=== PATIENT | male | born 1955 | race Caucasian/White ===

== ENCOUNTER 2020-08-22 14:02 | Emergency (ER) | payer OTHER ==
[2020-08-22] MEDS: Sodium Chloride 0.9% 10 ML Syringe FLUSH PRN ×2 (14:24→17:34)
--- NOTE | 2020-08-22 14:47 | EDM.PDOC ---
ED HPI GENERAL MEDICAL PROBLEM - General Chief Complaint: Neuro Symptoms/Deficits Stated Complaint: RT SIDE NUMBNESS IN ARM AND LEG Time Seen by Provider: 08/22/20 14:36 - History of Present Illness INITIAL COMMENTS - FREE TEXT/NARRATIVE: 64-year-old male presents the emergency room with transient intermittent right- sided numbness. Patient states he has had several episodes over the last couple weeks where he developed this brief episode of numbness that would last several minutes this initially started in his right leg, then developed into the right leg and arm and he thinks at times may be the right side of his face. These episodes never lasted more than a couple of minutes and they did get better he did have one episode where he had to really think about where he was putting his foot. He denies a foot drop or significant weakness he just had to really think about what he was doing with his leg. Patient does not have a history of prior TIAs or stroke. Patient is not aware of any recent head injury. He is treated for hypertension usually uses lisinopril 20 mg daily. He does not have a regular physician as his regular doctor did retire. - Related Data Allergies Allergy/AdvReac Type Severity Reaction Status Date / Time No Known Allergies Allergy Verified 08/22/20 14:21 Home Meds: Home Meds Aspirin [Aspirin EC] 81 mg PO DAILY 08/22/20 [History] lisinopriL [Lisinopril] 20 mg PO DAILY 08/22/20 [History] lisinopriL [Lisinopril] 20 mg PO DAILY #30 tablet 08/22/20 [Rx] Social & Family History - Tobacco Use Tobacco Use Status *Q: Never Tobacco User - Caffeine Use Caffeine Use: Reports: Soda - Recreational Drug Use Recreational Drug Use: No ED ROS GENERAL - Review of Systems Review Of Systems: See Below Constitutional: Reports: No Symptoms HEENT: Reports: No Symptoms Respiratory: Reports: No Symptoms Cardiovascular: Reports: No Symptoms GI/Abdominal: Reports: No Symptoms : Reports: No Symptoms Musculoskeletal: Reports: No Symptoms Skin: Reports: No Symptoms Neurological: Reports: Other (See HPI) Psychiatric: Reports: No Symptoms Hematologic/Lymphatic: Reports: No Symptoms ED EXAM, GENERAL - Physical Exam Exam: See Below Exam Limited By: No Limitations General Appearance: Alert, No Apparent Distress Eye Exam: Bilateral Eye: EOMI, Normal Inspection, PERRL Ears: Normal External Exam, Normal Canal, Hearing Grossly Normal, Normal TMs Nose: Normal Inspection, Normal Mucosa, No Blood Throat/Mouth: Normal Inspection, Normal Lips, Normal Teeth, Normal Gums, Normal Oropharynx, Normal Voice, No Airway Compromise Head: Atraumatic, Normocephalic Neck: Normal Inspection, Supple, Non-Tender, Full Range of Motion. No: Lymphadenopathy (L), Lymphadenopathy (R) Respiratory/Chest: No Respiratory Distress, Lungs Clear, Normal Breath Sounds Cardiovascular: Normal Peripheral Pulses, Regular Rate, Rhythm, No Edema GI/Abdominal: Normal Bowel Sounds, Soft, Non-Tender Back Exam: Normal Inspection. No: CVA Tenderness (L), CVA Tenderness (R) Extremities: Normal Inspection, No Pedal Edema Neurological: Other (Cranial nerves II through XII grossly intact all muscle groups the upper and lower extremities are equal and appropriate bilaterally deep tendon reflexes at the brachial radialis and patella tendon is equal and appropriate. Cerebellar testing appears to be normal) Course - Vital Signs Last Recorded V/S: Last Vital Signs Temp 36.2 C 08/22/20 14:18 Pulse 108 H 08/22/20 14:18 Resp 10 L 08/22/20 14:18 BP 178/106 H 08/22/20 14:18 Pulse Ox 98 08/22/20 14:18 - Orders/Labs/Meds Orders: Active Orders 24 hr Category Date Time Status EKG 12 Lead [EKG Documentation Completion] [RC] STAT Care 08/22/20 14:20 Active Ang Head [CT] Stat Exams 08/22/20 16:44 Taken Ang Neck [CT] Stat Exams 08/22/20 16:44 Taken Head wo Cont [CT] Stat Exams 08/22/20 14:54 Taken Sodium Chloride 0.9% [Normal Saline] 100 ml Med 08/22/20 17:00 Active IV ASDIRECTED Sodium Chloride 0.9% [Saline Flush] Med 08/22/20 16:50 Active 10 ml FLUSH ONETIME PRN Medication Orders Sodium Chloride (Normal Saline) 100 mls @ 75 mls/hr IV ASDIRECTED QIANA Last Admin: 08/22/20 17:35 Dose: 75 mls/hr Documented by: TERESA Sodium Chloride (Sodium Chloride 0.9% 10 Ml Syringe) 10 ml FLUSH ONETIME PRN PRN Reason: IV FLUSH Last Admin: 08/22/20 17:34 Dose: 10 ml Documented by: Admin: 08/22/20 14:24 Dose: 10 ml Documented by: PEDRO Labs: Laboratory Tests 08/22/20 08/22/20 08/22/20 Range/Units 14:11 14:15 14:15 WBC 10.65 H (4.23-9.07) K/mm3 RBC 5.52 (4.63-6.08) M/mm3 Hgb 16.5 (13.7-17.5) gm/dl Hct 48.4 (40.1-51.0) % MCV 87.7 (79.0-92.2) fl MCH 29.9 (25.7-32.2) pg MCHC 34.1 (32.2-35.5) g/dl RDW Std Deviation 42.2 (35.1-43.9) fL Plt Count 262 (163-337) K/mm3 MPV 11.0 (9.4-12.3) fl Neut % (Auto) 78.8 H (34.0-67.9) % Lymph % (Auto) 14.1 L (21.8-53.1) % [place] % (Auto) 6.1 (5.3-12.2) % Eos % (Auto) 0.1 L (0.8-7.0) Baso % (Auto) 0.9 (0.1-1.2) % Neut # (Auto) 8.39 H (1.78-5.38) K/mm3 Lymph # (Auto) 1.50 (1.32-3.57) K/mm3 [place] # (Auto) 0.65 (0.30-0.82) K/mm3 Eos # (Auto) 0.01 L (0.04-0.54) K/mm3 Baso # (Auto) 0.10 H (0.01-0.08) K/mm3 PT (9.7-12.0) SECONDS INR APTT (21.7-31.4) SECONDS Sodium 142 (136-145) mEq/L Potassium 3.9 (3.5-5.1) mEq/L Chloride 104 (98-107) mEq/L Carbon Dioxide 26 (21-32) mEq/L Anion Gap 15.9 H (5-15) BUN 12 (7-18) mg/dL Creatinine 1.1 (0.7-1.3) mg/dL Est Cr Clr Drug Dosing 74.16 mL/min Estimated GFR (MDRD) > 60 (>60) mL/min BUN/Creatinine Ratio 10.9 L (14-18) Glucose 197 H (70-99) mg/dL POC Glucose 174 H (70-99) mg/dL Calcium 8.8 (8.5-10.1) mg/dL Total Bilirubin 0.5 (0.2-1.0) mg/dL AST 16 (15-37) U/L ALT 30 (16-63) U/L Alkaline Phosphatase 88 (46-116) U/L Troponin I < 0.017 (0.00-0.056) ng/mL Total Protein 7.5 (6.4-8.2) g/dl Albumin 4.3 (3.4-5.0) g/dl Globulin 3.2 gm/dL Albumin/Globulin Ratio 1.3 (1-2) SARS-CoV-2 RNA ([place]) (NEGATIVE) 08/22/20 08/22/20 Range/Units 15:06 17:10 WBC (4.23-9.07) K/mm3 RBC (4.63-6.08) M/mm3 Hgb (13.7-17.5) gm/dl Hct (40.1-51.0) % MCV (79.0-92.2) fl MCH (25.7-32.2) pg MCHC (32.2-35.5) g/dl RDW Std Deviation (35.1-43.9) fL Plt Count (163-337) K/mm3 MPV (9.4-12.3) fl Neut % (Auto) (34.0-67.9) % Lymph % (Auto) (21.8-53.1) % [place] % (Auto) (5.3-12.2) % Eos % (Auto) (0.8-7.0) Baso % (Auto) (0.1-1.2) % Neut # (Auto) (1.78-5.38) K/mm3 Lymph # (Auto) (1.32-3.57) K/mm3 Ma[place] # (Auto) (0.30-0.82) K/mm3 Eos # (Auto) (0.04-0.54) K/mm3 Baso # (Auto) (0.01-0.08) K/mm3 PT 10.8 (9.7-12.0) SECONDS INR 1.01 APTT 26.0 (21.7-31.4) SECONDS Sodium (136-145) mEq/L Potassium (3.5-5.1) mEq/L Chloride (98-107) mEq/L Carbon Dioxide (21-32) mEq/L Anion Gap (5-15) BUN (7-18) mg/dL Creatinine (0.7-1.3) mg/dL Est Cr Clr Drug Dosing mL/min Estimated GFR (MDRD) (>60) mL/min BUN/Creatinine Ratio (14-18) Glucose (70-99) mg/dL POC Glucose (70-99) mg/dL Calcium (8.5-10.1) mg/dL Total Bilirubin (0.2-1.0) mg/dL AST (15-37) U/L ALT (16-63) U/L Alkaline Phosphatase (46-116) U/L Troponin I (0.00-0.056) ng/mL Total Protein (6.4-8.2) g/dl Albumin (3.4-5.0) g/dl Globulin gm/dL Albumin/Globulin Ratio (1-2) SARS-CoV-2 RNA ([place]) Negative (NEGATIVE) Meds: Medications Generic Name Dose Route Start Last Admin Trade Name Freq PRN Reason Stop Dose Admin Sodium Chloride 100 mls @ 75 mls/hr 08/22/20 17:00 08/22/20 17:35 Normal Saline IV 75 mls/hr ASDIRECTED QIANA Administration Sodium Chloride 10 ml 08/22/20 16:50 08/22/20 17:34 Sodium Chloride 0.9% 10 Ml Syringe FLUSH 10 ml ONETIME PRN Administration IV FLUSH Discontinued Medications Generic Name Dose Route Start Last Admin Trade Name Freq PRN Reason Stop Dose Admin Iopamidol 100 ml 08/22/20 16:50 08/22/20 17:34 Iopamidol 755 Mg/Ml 100 Ml Bottle IVPUSH 08/22/20 16:51 100 ml ONETIME ONE Administration - Re-Assessments/Exams Free Text/Narrative Re-Assessment/Exam: 08/22/20 16:54 Results of the initial CT that showed a small amount of subarachnoid blood within the posterior frontal lobe on the left Case was discussed with Dr. Vaughn, on-call neurosurgeon at [facility] who would like me to check a CTA of the head and I will also get one of the neck is at the same contrast load. 08/22/20 18:30 CTA fairly unremarkable in the neck region CT of the brain and head shows no aneurysms however there is an area in the left MCA there appears to have a 90% stenosis this has been reviewed by neurosurgery and by interventional radiology and they do not think any procedure needs to be done with this the case was discussed with our hospitalist here who would prefer the patient go to a facility that has neurosurgical backup Dr. Porsche neumann hospitalist at [facility] accepts the patient at [phone] this evening. His Covid is negative Departure - Departure Time of Disposition: 18:15 Disposition: DC/Tfer to Acute Hospital 02 Clinical Impression: Subarachnoid hemorrhage - Discharge Information Prescriptions: lisinopriL [Lisinopril] 20 mg PO DAILY #30 tablet Referrals: PCP,None [Primary Care Provider] - Forms: ED Department Discharge Sepsis Event Note (ED) - Evaluation Sepsis Screening Result: No Definite Risk - Focused Exam Vital Signs: Vital Signs Temp Pulse Resp BP Pulse Ox 08/22/20 14:18 36.2 C 108 H 10 L 178/106 H 98 - My Orders Last 24 Hours: My Active Orders 08/22/20 14:20 EKG 12 Lead [EKG Documentation Completion] [RC] STAT 08/22/20 14:54 Head wo Cont [CT] Stat 08/22/20 16:44 Ang Head [CT] Stat Ang Neck [CT] Stat 08/22/20 16:50 Sodium Chloride 0.9% [Saline Flush] 10 ml FLUSH ONETIME PRN 08/22/20 17:00 Sodium Chloride 0.9% [Normal Saline] 100 ml IV ASDIRECTED - Assessment/Plan Last 24 Hours: My Active Orders 08/22/20 14:20 EKG 12 Lead [EKG Documentation Completion] [RC] STAT 08/22/20 14:54 Head wo Cont [CT] Stat 08/22/20 16:44 Ang Head [CT] Stat Ang Neck [CT] Stat 08/22/20 16:50 Sodium Chloride 0.9% [Saline Flush] 10 ml FLUSH ONETIME PRN 08/22/20 17:00 Sodium Chloride 0.9% [Normal Saline] 100 ml IV ASDIRECTED
[2020-08-22] MEDS ORDERED: Iopamidol 755 Mg/ML 100 ML Bottle IVPUSH ONE (16:50)
[2020-08-22] MEDS ORDERED: Sodium Chloride 0.9% 100 ML IV SCH (17:00)
--- NOTE | 2020-08-23 08:57 | CT ---
Head CT Technique: Multiple axial sections through the brain were obtained. Intravenous contrast was not utilized. Reconstructed coronal and sagittal images were obtained. Comparison: No prior intracranial imaging is available. Findings: Minimal amount of increased density is seen within a subarachnoid space within the upper left posterior parietal convexity. This most likely represents a minimal area of subarachnoid hemorrhage. No other subarachnoid hemorrhage is seen. No parenchymal hemorrhage is noted. No other abnormal parenchymal change is seen. Ventricles along with basal cisterns and sulci over the convexities are within normal limits for the patient's age. Bone window settings were reviewed. Visualized mastoid sinuses and paranasal sinuses show nothing acute. No acute calvarial abnormality is appreciated. Impression: 1. Minimal subarachnoid hemorrhage within the upper left posterior parietal convexity. 2. No additional abnormality is identified on noncontrast head CT exam. Note: Recommend follow-up noncontrast CT exam within 48 hours to further evaluate previous hemorrhage. Diagnostic code #3 I agree with preliminary report from [facility], finalized on 08/22/20, 4:53 PM CDT, code 1
--- NOTE | 2020-08-23 08:58 | CT ---
CT angiogram of the neck Technique: Multiple axial sections were obtained through the neck. Study was obtained after intravenous contrast. Multiple MIP images were obtained. Comparison: No prior neck vascular imaging is available. Findings: Carotid arteries, vertebral arteries as well as the basilar artery are patent. There is no focal stenosis, occlusion or dissection being seen. Impression: 1. No abnormality is identified on CT study of the neck. Diagnostic code #1 I agree with preliminary report from [facility], finalized on 08/22/20, 6:39 PM CDT, code 1
--- NOTE | 2020-08-23 08:59 | CT ---
CT angiogram of the brain Technique: Multiple axial sections through the brain were obtained. Intravenous contrast was utilized. Study was obtained during arterial phase. Multiple MIP images were then obtained. Findings: High-grade stenosis is identified within the proximal left MCA measuring at least 90 percent. Other visualized intracranial arteries show no discrete stenosis or occlusion. There is diminished enhancement within the left side of the brain due to the right sided stenosis. No aneurysm is seen. Impression: 1. 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 This measures at least 90 percent and causes decreased enhancement of portions of the left brain. 2. No additional abnormality is appreciated on CT angiogram study of the brain. Diagnostic code #3 I agree with preliminary report from [facility], finalized on 08/22/20, 6:38 PM CDT, code 1
== END 2020-08-22 19:00 ==
LOC: JD.ED 14:02
DX: I60.9 Nontraumatic subarachnoid hemorrhage, unspecified (principal); Z79.82 Long term (current) use of aspirin; Z79.899 Other long term (current) drug therapy; Z20.822 Contact with and (suspected) exposure to COVID-19
CPT/HCPCS: 36415; 70450; 70496; 70498; 80053; 82947; 84484; 85025; 85610; 85730; 87635; 93005; 99285; Q9967; U0002

== ENCOUNTER 2020-09-10 11:38 | Emergency (ER) | payer OTHER ==
[2020-09-10] MEDS ORDERED: Sodium Chloride 0.9% 10 ML Syringe FLUSH PRN (12:28)
--- NOTE | 2020-09-10 12:55 | CT ---
Head CT Technique: Multiple axial sections through the brain were obtained. Intravenous contrast was not utilized. Reconstructed coronal and sagittal images were obtained. Comparison: Prior head CT study of 08/22/20. Findings: Ventricles along with basal cisterns and sulci over the convexities are within normal limits for the patient's age. No abnormal parenchymal densities are seen. No evidence of intracranial hemorrhage is seen. No midline shift or mass-effect is seen. Bone window settings were reviewed which show no acute calvarial abnormality. Visualized paranasal sinuses and mastoid sinuses show nothing acute. Impression: 1. Nothing acute is seen on noncontrast head CT study. Previous small hemorrhage within the left posterior parietal region is not seen on current study. 2. If patient's symptoms are persistent then consider brain MRI. Diagnostic code #1
--- NOTE | 2020-09-10 14:35 | EDM.PDOC ---
ED HPI GENERAL MEDICAL PROBLEM - General Chief Complaint: Neuro Symptoms/Deficits Stated Complaint: SOB/CONFUSION Time Seen by Provider: 09/10/20 12:15 Source of Information: Reports: Patient, Family History Limitations: Reports: No Limitations - History of Present Illness INITIAL COMMENTS - FREE TEXT/NARRATIVE: The patient presents with confusion. This happened just before arrival and it is gone now. Three weeks ago he was seen here for a subarachnoid hemorrhage. He was sent to [facility]. They did some further tests and found he has a vessel in his brain that is constricted. He is now on aspirin and blood pressure medications. He was mowing the lawn in the heat and he was confused when he came in and also had some cramping. He has no headache, chest pain, shortness of breath, abdominal pain, nausea or vomiting. He has no numbness or weakness. Onset: Sudden Duration: Minutes: Severity: Moderate Improves with: Reports: None Worsens with: Reports: None Associated Symptoms: Reports: No Other Symptoms - Related Data Allergies Allergy/AdvReac Type Severity Reaction Status Date / Time No Known Allergies Allergy Verified 09/10/20 12:31 Home Meds: Home Meds Aspirin [Aspirin EC] 81 mg PO DAILY 08/22/20 [History] lisinopriL [Lisinopril] 20 mg PO BID 08/22/20 [History] Chlorthalidone 12.5 mg PO DAILY 09/10/20 [History] atorvaSTATin Calcium [Atorvastatin Calcium] 80 mg PO BEDTIME 09/10/20 [History] Past Medical History HEENT History: Reports: Impaired Vision Other HEENT History: wears eyeglasses. Cardiovascular History: Reports: Hypertension Musculoskeletal History: Reports: Fracture Neurological History: Reports: CVA, Other (See Below) Other Neuro History: subarachnoid bleed. - Infectious Disease History Infectious Disease History: Reports: Chicken Pox, Mumps - Past Surgical History HEENT Surgical History: Reports: Tonsillectomy Musculoskeletal Surgical History: Reports: Other (See Below) Other Musculoskeletal Surgeries/Procedures:: closed reduction of leg fx Social & Family History - Tobacco Use Tobacco Use Status *Q: Never Tobacco User Second Hand Smoke Exposure: No - Caffeine Use Caffeine Use: Reports: Soda - Recreational Drug Use Recreational Drug Use: No ED ROS GENERAL - Review of Systems Review Of Systems: See Below Constitutional: Reports: No Symptoms HEENT: Reports: No Symptoms Respiratory: Reports: No Symptoms Cardiovascular: Reports: No Symptoms Endocrine: Reports: No Symptoms GI/Abdominal: Reports: No Symptoms : Reports: No Symptoms Musculoskeletal: Reports: No Symptoms ED EXAM, NEURO - Physical Exam Exam: See Below Exam Limited By: No Limitations General Appearance: Alert, No Apparent Distress Ears: Normal External Exam Nose: Normal Inspection Head Exam: Atraumatic, Normocephalic Neck: Normal Inspection Respiratory/Chest: No Respiratory Distress, Lungs Clear, Normal Breath Sounds Cardiovascular: Regular Rate, Rhythm, No Edema, No Murmur GI/Abdominal: Soft, Non-Tender, No Organomegaly, No Mass Neurological: Alert, No Motor/Sensory Deficits, Oriented x 3 #1 Interpretation EKG Date: 09/10/20 Time: 12:17 Rhythm: NSR Rate (Beats/Min): 88 Fallon: LAD-Left Fallon Deviation P-Wave: Present QRS: Normal ST-T: Normal QT: Normal EKG Interpretation Comments: Q waves in the inferior leads Course - Vital Signs Last Recorded V/S: Last Vital Signs Temp 97.5 F 09/10/20 12:15 Pulse 88 09/10/20 12:15 Resp 12 09/10/20 12:15 BP 126/84 09/10/20 12:15 Pulse Ox 100 09/10/20 12:15 - Orders/Labs/Meds Orders: Active Orders 24 hr Category Date Time Status Cardiac Monitoring [RC] . DIRECTED Care 09/10/20 12:28 Active EKG Documentation Completion [RC] STAT Care 09/10/20 12:28 Active Peripheral IV Care [RC] . DIRECTED Care 09/10/20 12:28 Active Sodium Chloride 0.9% [Saline Flush] Med 09/10/20 12:28 Active 10 ml FLUSH ASDIRECTED PRN Peripheral IV Insertion Adult [OM.PC] Stat Oth 09/10/20 12:28 Ordered Medication Orders Sodium Chloride (Sodium Chloride 0.9% 10 Ml Syringe) 10 ml FLUSH ASDIRECTED PRN PRN Reason: Keep Vein Open Last Admin: 09/10/20 12:44 Dose: 10 ml Documented by: BAILEY Labs: Laboratory Tests 09/10/20 09/10/20 09/10/20 Range/Units 12:20 12:20 12:20 WBC 12.31 H (4.23-9.07) K/mm3 RBC 5.23 (4.63-6.08) M/mm3 Hgb 15.6 (13.7-17.5) gm/dl Hct 45.8 (40.1-51.0) % MCV 87.6 (79.0-92.2) fl MCH 29.8 (25.7-32.2) pg MCHC 34.1 (32.2-35.5) g/dl RDW Std Deviation 38.9 (35.1-43.9) fL Plt Count 311 (163-337) K/mm3 MPV 9.9 (9.4-12.3) fl Neut % (Auto) 78.2 H (34.0-67.9) % Lymph % (Auto) 10.5 L (21.8-53.1) % [place] % (Auto) 10.6 (5.3-12.2) % Eos % (Auto) 0.2 L (0.8-7.0) Baso % (Auto) 0.2 (0.1-1.2) % Neut # (Auto) 9.63 H (1.78-5.38) K/mm3 Lymph # (Auto) 1.29 L (1.32-3.57) K/mm3 [place] # (Auto) 1.30 H (0.30-0.82) K/mm3 Eos # (Auto) 0.03 L (0.04-0.54) K/mm3 Baso # (Auto) 0.02 (0.01-0.08) K/mm3 Manual Slide Review Normal smear PT 10.6 (9.7-12.0) SECONDS INR 0.99 APTT 26.5 (21.7-31.4) SECONDS Sodium 133 L (136-145) mEq/L Potassium 4.4 (3.5-5.1) mEq/L Chloride 95 L (98-107) mEq/L Carbon Dioxide 29 (21-32) mEq/L Anion Gap 13.4 (5-15) BUN 23 H (7-18) mg/dL Creatinine 1.4 H (0.7-1.3) mg/dL Est Cr Clr Drug Dosing 55.76 mL/min Estimated GFR (MDRD) 51 (>60) mL/min BUN/Creatinine Ratio 16.4 (14-18) Glucose 117 H (70-99) mg/dL Calcium 9.5 (8.5-10.1) mg/dL Total Bilirubin 0.6 (0.2-1.0) mg/dL AST 23 (15-37) U/L ALT 56 (16-63) U/L Alkaline Phosphatase 101 (46-116) U/L Troponin I < 0.017 (0.00-0.056) ng/mL Total Protein 7.9 (6.4-8.2) g/dl Albumin 3.9 (3.4-5.0) g/dl Globulin 4.0 gm/dL Albumin/Globulin Ratio 1.0 (1-2) Meds: Medications Generic Name Dose Route Start Last Admin Trade Name Freq PRN Reason Stop Dose Admin Sodium Chloride 10 ml 09/10/20 12:28 09/10/20 12:44 Sodium Chloride 0.9% 10 Ml Syringe FLUSH 10 ml ASDIRECTED PRN Administration Keep Vein Open - Re-Assessments/Exams Free Text/Narrative Re-Assessment/Exam: 09/10/20 14:36 A stroke alert was called. His last time known well was just before arrival. He is back to baseline now. I ordered an EKG, CT of his head, IV saline lock. His EKG shows a NSR with no acute changes. CT of his head shows nothing acute is seen on noncontrast head CT study. Previous small hemorrhage within the left posterior parietal region is not seen on current study. His labs looks good. 09/10/20 14:38 I called [facility] in [place] and talked with Dr Barriga the neurologist automobiles salesperson and he was not to concerned with his symptoms. He wanted the patient to take it easy for a few days. Departure - Departure Time of Disposition: 14:40 Disposition: Home, Self-Care 01 Condition: Good Clinical Impression: Confusion - Discharge Information *PRESCRIPTION DRUG MONITORING PROGRAM REVIEWED*: Not Applicable *COPY OF PRESCRIPTION DRUG MONITORING REPORT IN PATIENT IBETH: Not Applicable Referrals: Shaneka Dias MD [Primary Care Provider] - 1 Week Additional Instructions: Drink plenty of fluids. Take your medications as prescribed. Follow up with Dr Barriga at the end of the month. Please return if you are worse. Sepsis Event Note (ED) - Evaluation Sepsis Screening Result: No Definite Risk - Focused Exam Vital Signs: Vital Signs Temp Pulse Resp BP Pulse Ox 09/10/20 12:15 97.5 F 88 12 126/84 100 - My Orders Last 24 Hours: My Active Orders 09/10/20 12:28 Cardiac Monitoring [RC] . DIRECTED EKG Documentation Completion [RC] STAT Peripheral IV Care [RC] . DIRECTED Sodium Chloride 0.9% [Saline Flush] 10 ml FLUSH ASDIRECTED PRN Peripheral IV Insertion Adult [OM.PC] Stat - Assessment/Plan Last 24 Hours: My Active Orders 09/10/20 12:28 Cardiac Monitoring [RC] . DIRECTED EKG Documentation Completion [RC] STAT Peripheral IV Care [RC] . DIRECTED Sodium Chloride 0.9% [Saline Flush] 10 ml FLUSH ASDIRECTED PRN Peripheral IV Insertion Adult [OM.PC] Stat
== END 2020-09-10 15:15 | disposition home or self-care (01) ==
LOC: JD.ED 11:38
DX: R41.0 Disorientation, unspecified (principal); I10 Essential (primary) hypertension; Z79.82 Long term (current) use of aspirin; Z79.899 Other long term (current) drug therapy
CPT/HCPCS: 36415; 70450; 70450-26; 80053; 84484; 85025; 85610; 85730; 93005; 93010; 99284; 99285-25